=== PATIENT | female | born 1990 | race Caucasian/White ===

== ENCOUNTER 2023-01-26 06:59 | Emergency (ER) | payer OTHER ==
[~2023-01-26] VITALS: Ht 180.3 cm; Wt 95.3 kg
[2023-01-26 13:37] VITALS: O2SAT 100
[2023-01-26] MEDS ORDERED: TRAM50TA2 PO (23:42)
== END 2023-01-26 17:19 | disposition home or self-care (01) ==
LOC: ER 06:59
DX: F20.9 Schizophrenia, unspecified (principal); F17.210 Nicotine dependence, cigarettes, uncomplicated; Z59.00 Homelessness unspecified
CPT/HCPCS: A4663

== ENCOUNTER 2023-01-26 22:09 | Emergency (ER) | payer OTHER ==
[~2023-01-26] VITALS: Ht 180.3 cm; Wt 95.3 kg
[2023-01-26] MEDS ORDERED: TRAMADOL HCL 50 MG TABLET PO ONE (22:45)
[2023-01-26 22:57] LABS: BASOPHILS # (AUTO) 0.2 K/UL (0.0-0.2); BASOPHILS % (AUTO) 1.5 % (0.0-2.0); EOSINOPHILS # (AUTO) 0.1 K/uL (0.0-0.7); EOSINOPHILS % (AUTO) 0.6 % (0.0-7.0); HEMATOCRIT 36.8 % (31.2-41.9); HEMOGLOBIN 12.3 g/dL (10.9-14.3); LYMPHOCYTES # (AUTO) 1.8 K/uL (0.8-4.8); LYMPHOCYTES % (AUTO) 16.6 % (20.5-51.5); MEAN CORPUSCULAR HEMOGLOBIN 29.3 uug (24.7-32.8); MEAN CORPUSCULAR HGB CONC 34 g/dL (32.3-35.6); MEAN CORPUSCULAR VOLUME 87.6 fL (75.5-95.3); MONOCYTES % (AUTO) 9.6 % (0.0-11.0); NEUTROPHILS # (AUTO) 7.6 K/uL (1.8-8.9); NEUTROPHILS % (AUTO) 71.7 % (38.5-71.5); PLATELET COUNT (AUTO) 277 K/uL (179-408); RED CELL DISTRIBUTION WIDTH 13.8 % (12.3-17.7); WHITE BLOOD COUNT (AUTO) 10.6 K/uL (3.8-11.8)
[2023-01-26 23:04] LABS: DIFFERENTIAL COMMENT 1
[2023-01-26] MEDS ORDERED: TRAMADOL HCL 50 MG TABLET ONE ×2 (23:06→23:52)
[2023-01-26 23:08] LABS: CALCIUM 8.8 mg/dL (8.5-10.1); CREATININE 0.7 mg/dL (0.6-1.3); POTASSIUM 3.2 mmol/L (3.5-5.1)
[2023-01-26] MEDS ORDERED: TRAM50TA2 PO (23:42)
[2023-01-26] MEDS ORDERED: POTASSIUM CHLORIDE 20 MEQ TAB.PRT.SR PO ONE (23:45)
[2023-01-26] MEDS ORDERED: POTASSIUM CHLORIDE 20 MEQ TAB.PRT.SR ONE (23:58)
[2023-01-27] MEDS ORDERED: TRAMADOL HCL 50 MG TABLET PO ONE
[2023-01-27 08:50] VITALS: O2SAT 98
== END 2023-01-27 11:18 | disposition home or self-care (01) ==
LOC: ER 22:10
DX: G89.4 Chronic pain syndrome (principal); F20.9 Schizophrenia, unspecified; F17.210 Nicotine dependence, cigarettes, uncomplicated; R10.2 Pelvic and perineal pain; Z59.00 Homelessness unspecified; Z71.6 Tobacco abuse counseling
CPT/HCPCS: 36415; 85025; A4663